=== PATIENT | female | born 1935 | race Caucasian/White ===

== ENCOUNTER 2018-03-18 17:00 | Observation (INO) | payer MEDICARE, OTHER, MEDICAID, SELFPAY ==
[2018-03-18 17:04] VITALS: BP 166/70; PULSE 87; RESP 16; TEMP 36.7; O2SAT 97; BMI 35.2
--- NOTE | 2018-03-18 17:18 | CT_ITS ---
STUDY: CTA NECK WITH CONTRAST REASON FOR EXAM: Female, 82 years old. Left vision loss x24 hours. RADIATION DOSAGE (If Supplied By Facility): CTDIvol = ( 26.82 ) mGy, DLP = ( 1509.67 ) mGycm TECHNIQUE: CT angiography with multi-detector data acquisition was performed from the aortic arch to the skull base following intravenous administration of 75ml ml of Isovue 370 contrast. MIP images were reconstructed from the axial data set. Post-processing of the angiographic images was performed, with multiplanar reformation and 3D reconstruction. Individualized dose optimization techniques were used for this CT. COMPARISON: MRA neck April 06, 2015 FINDINGS: AORTIC ARCH: Normal visualized aortic arch. Normal origins of the brachiocephalic, left common carotid, and left subclavian arteries. Calcified plaque at the origins of the great vessels but no significant stenosis. RIGHT CAROTID ARTERIES: Normal right common carotid artery (CCA). There is mild atherosclerotic plaque formation with minimal narrowing of the right carotid bulb. There is mild atherosclerotic plaque formation of the origin of the right internal carotid artery with less than 50% cross sectional diameter stenosis. Normal visualized cervical portion of the right internal carotid artery. Normal origin of the right external carotid artery (ECA). LEFT CAROTID ARTERIES: Normal left common carotid artery (CCA). There is mild atherosclerotic plaque formation with minimal narrowing of the left carotid bulb. There is mild atherosclerotic plaque formation of the origin of the left internal carotid artery with less than 50% cross sectional diameter stenosis. Normal visualized cervical portion of the left internal carotid artery. Normal origin of the left external carotid artery (ECA). VERTEBRAL ARTERIES: Normal bilateral vertebral arteries. 4 mm nodule right pulmonary apex. CT/CTA Neck W/WO Contrast IMPRESSION: No hemodynamically significant stenosis. 4 to 5 mm spiculated lesion right pulmonary apex. Recommend follow-up CT chest nonemergently. Electronically Signed: Parth Ghotra MD at 19:39 EDT , Service support ,
--- NOTE | 2018-03-18 17:18 | CT_ITS ---
STUDY: CTA OF THE BRAIN REASON FOR EXAM: Female, 82 years old. Vision loss left eye RADIATION DOSAGE (If Supplied By Facility): CTDIvol = ( 26.82 ) mGy, DLP = ( 1509.67 ) mGycm TECHNIQUE: CT angiography was performed with a multi-detector CT scanner. Data acquisition was obtained from the skull base through the vertex following intravenous administration of 75 ml of Isovue-370. MIP images were reconstructed from the axial data set. Post-processing of the angiographic images was performed, with multiplanar reformation and 3D reconstruction. Individualized dose optimization techniques were used for this CT. COMPARISON: CT brain September 19, 2015 and MR brain April 06, 2015 FINDINGS: Intracranial atherosclerosis. Moderate atrophy. Normal bilateral petrous carotid arteries. Normal right cavernous carotid artery with a normal supraclinoid bifurcation. Normal left cavernous carotid artery with a normal supraclinoid bifurcation. Normal right A1 segments of the anterior cerebral artery. Normal left A1 segments of the anterior cerebral artery. Normal intact anterior communicating artery (ACOM). Normal bilateral A2 segments of the anterior cerebral arteries. Normal right M1 and M2 segments of the middle cerebral arteries, with a normal M1 bifurcation. Normal left M1 and M2 segments of the middle cerebral arteries, with a normal M1 bifurcation. There is non-visualization of the right posterior communicating artery (PCOM). There is non-visualization of the left posterior communicating artery (PCOM). Normal bilateral vertebral arteries. Normal basilar artery with a normal basilar bifurcation. The visualized bilateral superior cerebellar (SCA) arteries are normal. Normal bilateral P1, P2 and visualized P3 segments of the posterior cerebral arteries. There is no demonstrated aneurysm of the [place] of [place]. There is no demonstrated abnormality of the visualized brain. CT/CTA Head W/WO Contrast IMPRESSION: Normal [place] without a demonstrated aneurysm or hemodynamically significant stenosis. Electronically Signed: Parth Ghotra MD at 20:55 EDT , Service support ,
--- NOTE | 2018-03-18 17:18 | EKG12_ITS ---
Test Reason : NEURO SX Blood Pressure : / mmHG Vent. Rate : 078 BPM Atrial Rate : 078 BPM P-R Int : 218 ms QRS Dur : 100 ms QT Int : 376 ms P-R-T Axes : 054 -28 036 degrees QTc Int : 428 ms Sinus rhythm with 1st degree A-V block with Premature supraventricular complexes Otherwise normal ECG Confirmed by KENYA FRIAS, MURRAY ([id number]), story editor ELBA TIM ([id number]) on 03/20/2018 12:45:33 PM Referred By: HERNAN Confirmed By:MURRAY ZAMBRANO MD
[2018-03-18 17:51] LABS: Absolute Lymphocyte Count 2.45 X10^3/ul (0.83-4.51); Absolute Neutrophil Count 3.9 X10^3/uL (2.0-7.7); Basophil# 0.02 X10^3/uL; Basophil% 0.3 % (0-1); Eosinophil# 0.38 X10^3/uL; Eosinophils% 5.2 % (0-5); Hematocrit 30.5 % (37-47); Hemoglobin 9.9 g/dl (12.0-15.0); Lymphocyte # 2.45 X10^3/ul (4.0); Lymphocyte % 33.3 % (19-41); Mean Corp Hgb Conc 32.5 g/gl (32-36); Mean Corpuscular Hgb 32.1 pg (27.0-32.0); Mean Platelet Vol. 10.8 fl (6.2-12.0); Monocyte# 0.55 X10^3/uL; Monocyte% 7.5 % (0-10); Neutrophil # 3.94 X10^3/uL (2.7-7.7); Neutrophil % 53.6 % (47-70); POSITIVE COUNT NO; POSITIVE DIFFERENTIAL NO; POSITIVE MORPHOLOGY NO; Platelet Count 202 K/mm3 (150-450); RBC Distribution Width CV 12.7 % (11.6-14.6); RBC Distribution Width SD 46.2 fl (35.1-43.9); Red Blood Count 3.08 M/mm3 (4.2-5.4); White Blood Count 7.4 K/mm3 (4.4-11.0)
[2018-03-18 17:55] LABS: International Normalized Ratio 0.9; Prothrombin Time (Protime)PT. 12.5 SECONDS (11.7-14.9)
[2018-03-18 18:05] LABS: Anion Gap 6 (5-15); BUN 19 mg/dL (7-18); BUN/Creat Ratio 18.1 RATIO (10-20); Calcium,Total 9.1 mg/dL (8.5-10.1); Chloride 104 mmol/L (98-107); Creatinine, Serum 1.05 mg/dL (0.55-1.02); EST Glomerular Filtration Rate 54 mL/min (>60); Est Glom Filt Rate - Afr Amer 65 mL/min (>60); Glucose 141 mg/dL (74-106); Potassium 4.5 mmol/L (3.5-5.1); Sodium Level 138 mmol/L (136-145)
[2018-03-18 19:46] VITALS: BP 140/75; PULSE 80; RESP 16; O2SAT 99
--- NOTE | 2018-03-18 21:19 | ED.VISSUMM ---
- ER Visit Summary Date of Service: 03/18/18 Chief Complaint: Unable to see out of left eye History of Present Illness: The patient is a 82 F who presents with complete visual loss in the left eye. It began about 2:30 PM yesterday. She states she was writing a check. Initially her vision was blurry but within 20 minutes she could not see out of it at all. She states she cannot even detect motion or light. She denies flashing lights or floaters. No history of prior similar symptoms. She denies any pain. No headache nausea vomiting. No other neurological symptoms such as weakness slurred speech or facial droop. The left eye only is affected. Physical Examination: Afebrile vitals notable for blood pressure 166/70 otherwise normal. Patient is unable to detect light or movement from the left eye. There is afferent pupillary defect. Extraocular motion is normal without pain or palsy Anterior chamber is deep and quiet Funduscopic exam is limited by myosis but I do not appreciate any obvious abnormalities such as waite red spot, boxcarring or blood and thunder macula Heart is regular rate and rhythm there is a systolic murmur Lungs are clear Abdomen soft Normal strength and sensation no facial droop Test Results: EKG shows sinus rhythm with a first-degree AV block and PACs. CBC BMP unremarkable. INR 0.9. CTA of the head is normal. CTA of the neck showed no hemodynamically significant stenosis incidental note is made of a 4-5 mm spiculated lesion in the right lung apex. Emergency Department Course and Treatment: Patient's presentation is concerning for central retinal artery occlusion. She presents greater than 24 hours after onset of symptoms. Patient was discussed with ophthalmology special education tutor, Dr. Werner who also recommended obtaining ESR and CRP due to concern for giant cell or temporal arteritis. Given the patient's multiple comorbidities I do believe the patient should undergo further inpatient workup as well including cardiac monitoring and echocardiogram. Patient will be discussed with the hospitalist and admitted. Treatment Plan: [] Disposition: Admit Impression: Acute vision loss left eye, suspect central retinal artery occlusion This note was generated with [employer] dictation software. It may contain incorrect words, spelling, and punctuation that were not noted in review of the chart prior to signing ED Disposition - Plan for ED Patient: Chief Complaint: Neuro S/Sx Referrals: Oneyda Joel MD [Primary Care Provider] -
--- NOTE | 2018-03-18 21:24 | ED.DCSUM_ITS ---
- ER Visit Summary Date of Service: 03/18/18 Chief Complaint: Unable to see out of left eye History of Present Illness: The patient is a 82 F who presents with complete visual loss in the left eye. It began about 2:30 PM yesterday. She states she was writing a check. Initially her vision was blurry but within 20 minutes she could not see out of it at all. She states she cannot even detect motion or light. She denies flashing lights or floaters. No history of prior similar symptoms. She denies any pain. No headache nausea vomiting. No other neurological symptoms such as weakness slurred speech or facial droop. The left eye only is affected. Physical Examination: Afebrile vitals notable for blood pressure 166/70 otherwise normal. Patient is unable to detect light or movement from the left eye. There is afferent pupillary defect. Extraocular motion is normal without pain or palsy Anterior chamber is deep and quiet Funduscopic exam is limited by myosis but I do not appreciate any obvious abnormalities such as waite red spot, boxcarring or blood and thunder macula Heart is regular rate and rhythm there is a systolic murmur Lungs are clear Abdomen soft Normal strength and sensation no facial droop Test Results: EKG shows sinus rhythm with a first-degree AV block and PACs. CBC BMP unremarkable. INR 0.9. CTA of the head is normal. CTA of the neck showed no hemodynamically significant stenosis incidental note is made of a 4-5 mm spiculated lesion in the right lung apex. Emergency Department Course and Treatment: Patient's presentation is concerning for central retinal artery occlusion. She presents greater than 24 hours after onset of symptoms. Patient was discussed with ophthalmology director workers compensation, Dr. Werner who also recommended obtaining ESR and CRP due to concern for giant cell or temporal arteritis. Given the patient's multiple comorbidities I do believe the patient should undergo further inpatient workup as well including cardiac monitoring and echocardiogram. Patient will be discussed with the hospitalist and admitted. Treatment Plan: [] Disposition: Admit Impression: Acute vision loss left eye, suspect central retinal artery occlusion This note was generated with [employer] dictation software. It may contain incorrect words, spelling, and punctuation that were not noted in review of the chart prior to signing ED Disposition - Plan for ED Patient: Chief Complaint: Neuro S/Sx Referrals: Oneyda Joel MD [Primary Care Provider] -
[2018-03-18 21:30] VITALS: BP 162/83; PULSE 67; RESP 14; O2SAT 99
[2018-03-18 21:34] LABS: CRP 5.19 mg/L (0.0-3.0)
[2018-03-18 21:46] VITALS: BP 168/74; PULSE 71; RESP 14; O2SAT 97
[2018-03-18 21:47] LABS: Erythrocyte Sedimentation Rate 19 mm/hr (0-30)
--- NOTE | 2018-03-18 22:01 | HP.PCM_ITS ---
Problem List (1) Blind left eye Status: Acute (2) Anemia Status: Acute (3) Hyperlipidemia Status: Chronic (4) TIA (transient ischemic attack) Status: Suspected (5) Type II diabetes mellitus Status: Chronic History of Present Illness Date of Admission: 03/18/18 Chief Complaint: Left eye blindness The patient is a 82 year old female w/ h/o TIA, DMII, HTN and anemia admitted for left eye blindness. She noted she could not see out of her left eye yesterday in the afternoon. She was writing a check and all of a sudden her vision became blurred and within less than an hour, she became completely blinded in the left eye. She only could see gross movement and shadow. No headache. No light-headedness. No numbness. No red eye. No teary eye. No other associated symptoms. No flashing lights or floaters. She thought it would go away. She went to sleep and thought it was just fatigue. However, it was persistent. Past Medical History Past Medical History (Chronic Problems): Chronic Problems Hyperlipidemia (Chronic) Type II diabetes mellitus (Chronic) Allergies No Known Allergies Allergy (Verified 03/18/18 17:01) Home Medications: Ambulatory Orders Medication Instructions Recorded Atorvastatin Calcium [Lipitor] 20 mg PO QHS 09/19/15 Calcium Carbonate/Vitamin D3 1 each PO DAILY 09/19/15 [Calcium 600 + Vit D Caplet] Lisinopril [Zestril] 20 mg PO DAILY 09/19/15 Metformin HCl [Glucophage] 500 mg PO DAILY 09/19/15 Surgical History: no surgical history Psychiatric History: No pertinent psych hx CERTIFIED REHABILITATION COUNSELOR History: No pertinent CERTIFIED REHABILITATION COUNSELOR history Smoking Status: Former smoker Alcohol: None Drugs: None - *Family History Maternal History Items: No pertinent history Paternal History Items: No pertinent history Review of Systems Constitutional: Denies: Chills, Fever, Weight Change Eyes: Reports: Blurred vision, - - Left eye blindness HEENT: Denies: Head Aches, Sinus Congestion, Sinus Drainage Cardiovascular: Denies: Chest Pain, Palpitations Respiratory: Denies: Cough, Shortness of breath at rest, Sputum production Gastrointestinal: Denies: Abdominal Pain, Nausea, Vomiting Genitourinary: Denies: Dysuria Musculoskeletal: Denies: Joint Pain, Joint Tenderness Skin: Denies: Rash, Wounds Neurological: Denies: Numbness, Tingling, Focal weakness Psychiatric: Denies: Anxiety, Depression, Homicidal Ideations, Suicidal Ideations Hematologic/ Lymphatic: Denies: Easy Bruising, Easy Bleeding VTE Information - Inpt Only VTE Present on Admission: No VTE Mechan Device Prophylaxis: SCD's VTE Pharm Prophylaxis ordered?: Yes Patient Problems: Active and Suspected Problems Blind left eye (Acute) - Physical Exam General: Alert, Oriented x3, Cooperative HEENT: Atraumatic, PERRLA, EOMI, Normocephalic Neck: Supple, No JVD, Negative Carotid Bruits Lungs: Clear to auscultation, Normal air movement Cardiovascular: Regular rate, No murmurs Abdomen: Bowel Sounds Present, Soft, Non Tender Extremities: No edema, Capillary Refill Less than 3 Seconds Skin: No rashes, No breakdown Musculoskeletal: No Tenderness to Palpation of Joints or Extremities Neurological: Cranial nerves II-XII grossly intact Psych/Mental Status: Normal Affect, Appropriate Vital Signs Temp Pulse Resp BP Pulse Ox 98.0 F 71 14 168/74 H 97 03/18/18 17:04 03/18/18 21:46 03/18/18 21:46 03/18/18 21:46 03/18/18 21:46 Oxygen Delivery Method Room Air Weight: 93.2 kg Body Mass Index (BMI) 35.2 Finger Stick Blood Glucose 121 Laboratory Tests Past 24 Hrs 03/18/18 03/18/18 03/18/18 17:35 17:35 17:35 WBC 7.4 RBC 3.08 L Hgb 9.9 L Hct 30.5 L MCV 99.0 MCH 32.1 H MCHC 32.5 RDW 12.7 RDW Differential 46.2 H Plt Count 202 MPV 10.8 Immature Gran % (Auto) 0.100 Neut % (Auto) 53.6 Lymph % (Auto) 33.3 Blair % (Auto) 7.5 Eos % (Auto) 5.2 H Baso % (Auto) 0.3 Absolute Neuts (auto) 3.9 Absolute Lymphs (auto) 2.45 Total Counted Not Reportable ESR PT 12.5 INR 0.9 Sodium 138 Potassium 4.5 Chloride 104 Carbon Dioxide 28.0 Anion Gap 6 BUN 19 H Creatinine 1.05 H Estim Creat Clear Calc 36.90 Est GFR (MDRD) Af Amer 65 Est GFR (MDRD) Non-Af 54 L BUN/Creatinine Ratio 18.1 Glucose 141 H Calcium 9.1 C-React Prot Ext Range 03/18/18 03/18/18 17:35 17:35 WBC RBC Hgb Hct MCV MCH MCHC RDW RDW Differential Plt Count MPV Immature Gran % (Auto) Neut % (Auto) Lymph % (Auto) Blair % (Auto) Eos % (Auto) Baso % (Auto) Absolute Neuts (auto) Absolute Lymphs (auto) Total Counted ESR 19 PT INR Sodium Potassium Chloride Carbon Dioxide Anion Gap BUN Creatinine Estim Creat Clear Calc Est GFR (MDRD) Af Amer Est GFR (MDRD) Non-Af BUN/Creatinine Ratio Glucose Calcium C-React Prot Ext Range 5.19 H Assessment/Plan All Active Problems Blind left eye (Acute) Anemia (Acute) Hypertensive urgency (Acute) Dizziness (Acute) 82 year old female w/ h/o TIA, DMII, HTN and anemia admitted for left eye blindness. 1) Left eye blindness: Will rule-out central causes of blindness. CTA brain and neck negative. Will get ECHO and MRI brain in AM. Will also get ESR / CRP. Will not start high dose steroid at this time given low suspicion for giant cell or temporal arteritis. Consulted ophthalmology. 2) Right pulmonary nodule: CT disclosed 4 mm nodule right pulmonary apex. Outpt followup. Pt to f/u with her PCP for repeat CT scan in 6 months. Monitor. 3) HTN: SBP 150s. Resume outpt meds. 4) DMII: Hold metformin given contrast during CTA. Sliding scale. 5) Prophylaxis: SCD / heparin.
--- NOTE | 2018-03-18 22:03 | NURSING ---
Called ED bunk house worker, Kelly at this time to confirm Pt is okay to come to PCU.
[2018-03-18 22:34] VITALS: BMI 33.8
[2018-03-18 22:38] VITALS: BP 153/65; PULSE 73; PULSE 77; RESP 16; TEMP 36.9; O2SAT 100
[2018-03-18 22:45] VITALS: BMI 33.8
--- NOTE | 2018-03-18 22:49 | ECHOD_ITS ---
Reason For Study: TIA/CVA Procedure This was a 2D Doppler, Color Flow transthoracic echocardiogram. The study was technically difficult. Exam performed portable in patient room. Left Ventricle Normal LV size. Moderate concentric left ventricular hypertrophy. Left ventricular systolic function is normal. The estimated ejection fraction is 65 %. Stage 1 diastolic dysfunction. No regional wall motion abnormalities noted. Right Ventricle Normal RV size. Normal systolic function. Atria The left atrium is moderately enlarged. Normal right atrium. Bubble contrast study negative for right to left interatrial shunt. Mitral Valve There is moderate mitral annular calcification. Mild (1+) eccentric mitral valve insufficiency. Tricuspid Valve Normal tricuspid valve. Mild (1+) tricuspid valve insufficiency. Pulmonary artery systolic pressure is 44 mmHg. Aortic Valve Trisinus/trileaflet aortic valve. Moderate focal aortic valve calcification. Peak aortic valve gradient 74 mmHg. Mean aortic valve gradient 39 mmHg. Severe aortic stenosis. Calculated aortic valve area (continuity equation) is 0.93 cm2. Pulmonic Valve The pulmonic valve is not well visualized. Great Vessels Calcified aortic root. The pulmonary artery is normal size. Normal inferior vena cava. Pericardium/Pleural No pericardial effusion. Medication Performed a rapid injection of agitated mix of 9 cc saline and 1cc air to assess for atrial septal defect. MMode/2D Measurements & Calculations LVIDd: 4.0 cm IVSd: 2.0 cm LVOT diam: 2.0 cm LVIDs: 2.4 cm LVPWd: 1.7 cm LVOT area: 3.2 cm2 FS: 41.0 % Ao root diam: 3.6 cm LAV(MOD-sp4): 86.8 ml LVAd ap4: 26.9 cm2 LA dimension: 3.3 cm EDV(MOD-sp4): 81.9 ml EDV(sp4-el): 83.0 ml LVAs ap4: 13.1 cm2 ESV(MOD-sp4): 26.5 ml ESV(sp4-el): 24.9 ml EF(MOD-sp4): 67.6 % EF(sp4-el): 70.0 % SV(MOD-sp4): 55.3 ml SV(sp4-el): 58.1 ml LA A4 area: 25.4 cm2 RA A4 area: 16.7 cm2 Time Measurements MV dec time: 0.24 sec Doppler Measurements & Calculations MV E max ephraim: 116.2 cm/sec Lat Peak E' Ephraim: 9.7 cm/sec Med Peak E' Ephraim: 5.5 cm/sec MV A max ephraim: 171.4 cm/sec E/E' lat: 12.0 E/E' med: 21.2 MV E/A: 0.68 MV V2 max: 227.3 cm/sec MV P1/2t max ephraim: 136.8 cm/sec Ao V2 max: 428.7 cm/sec MV max P.7 mmHg MV P1/2t: 43.8 msec Ao max P.9 mmHg MV V2 mean: 120.6 cm/sec MV dec slope: 914.0 cm/sec2 Ao V2 mean: 286.5 cm/sec MV mean P.2 mmHg MVA(P1/2t): 5.0 cm2 Ao mean P.8 mmHg MV V2 VTI: 44.4 cm Ao V2 VTI: 95.3 cm MVA(VTI): 2.2 cm2 LAUREN(I,D): 1.0 cm2 LAUREN(V,D): 0.93 cm2 LV V1 max: 122.9 cm/sec SV(LVOT): 99.4 ml TR max ephraim: 317.8 cm/sec LV V1 max P.0 mmHg TR max P.4 mmHg LV V1 mean P.1 mmHg LV V1 mean: 82.8 cm/sec LV V1 VTI: 30.8 cm Interpretation Summary Normal LV size. Moderate concentric left ventricular hypertrophy. Left ventricular systolic function is normal. The estimated ejection fraction is 65 %. Stage 1 diastolic dysfunction. Mean aortic valve gradient 39 mmHg. Severe aortic stenosis. Ordering Physician: Delmer Patton Referring Physician: NORA MELGOZA Performed By: Barrie Morrell RCS
[2018-03-18 23:09] VITALS: PULSE 72
[2018-03-18] MEDS: Atorvastatin Calcium 20 MG Tablet PO (23:18)
[2018-03-18] MEDS: Heparin Injection (Vial) 5,000 UNIT/ML VIAL 5000 UNIT SC (23:24)
[2018-03-18] MEDS: 0.9% Normal Saline 1,000 ML 100 ML IV (23:30)
[2018-03-18 23:39] LABS: Thyroid Stim Hormone (TSH) 1.44 uIU/mL (0.358-3.74)
[2018-03-18 23:41] LABS: Bedside Glucose 107 mg/dL (70-110)
[2018-03-19] VITALS (7 sets, daily range): BP systolic 123–151; BP diastolic 54–82; PULSE 68–77; RESP 16–18; TEMP 36.7–36.8; O2SAT 95–97
[2018-03-19 06:10] LABS: ALB/GLOB Ratio 0.8 RATIO (0.9-2.4); AST(SGOT) 21 U/L (15-37); Alanine Aminotransfer ALT/SGPT 16 U/L (13-56); Albumin, Serum 2.6 g/dL (3.2-5.0); Alkaline Phosphatase 35 U/L (45-117); Anion Gap 8 (5-15); BUN 15 mg/dL (7-18); BUN/Creat Ratio 19.5 RATIO (10-20); Calcium,Total 8.8 mg/dL (8.5-10.1); Chloride 111 mmol/L (98-107); Cholesterol 125 mg/dL (200); Creatinine, Serum 0.77 mg/dL (0.55-1.02); EST Glomerular Filtration Rate 77 mL/min (>60); Est Glom Filt Rate - Afr Amer 93 mL/min (>60); Estimated Creatinine Clearance 38.75 ml/min; Globulin 3.1 g/dL (2.2-4.2); Glucose 87 mg/dL (74-106); High Density Lipoprotein 64 mg/dL; Potassium 4.4 mmol/L (3.5-5.1); Protein, Total 5.7 g/dL (6.4-8.2); Sodium Level 142 mmol/L (136-145); Triglycerides 76 mg/dL; Very Low Density Lipoprotein 15 mg/dL (5-40)
[2018-03-19 06:28] LABS: Absolute Lymphocyte Count 2.55 X10^3/ul (0.83-4.51); Absolute Neutrophil Count 2.3 X10^3/uL (2.0-7.7); Basophil# 0.03 X10^3/uL; Basophil% 0.5 % (0-1); Eosinophil# 0.49 X10^3/uL; Eosinophils% 8.3 % (0-5); Hematocrit 29.8 % (37-47); Hemoglobin 9.9 g/dl (12.0-15.0); Lymphocyte # 2.55 X10^3/ul (4.0); Lymphocyte % 43.4 % (19-41); Mean Corp Hgb Conc 33.2 g/gl (32-36); Mean Corpuscular Hgb 33.1 pg (27.0-32.0); Mean Corpuscular Volume 99.7 fL (81-99); Mean Platelet Vol. 9.8 fl (6.2-12.0); Monocyte# 0.49 X10^3/uL; Monocyte% 8.3 % (0-10); Neutrophil # 2.31 X10^3/uL (2.7-7.7); Neutrophil % 39.5 % (47-70); Platelet Count 234 K/mm3 (150-450); RBC Distribution Width CV 12.3 % (11.6-14.6); RBC Distribution Width SD 43.5 fl (35.1-43.9); Red Blood Count 2.99 M/mm3 (4.2-5.4); White Blood Count 5.9 K/mm3 (4.4-11.0)
[2018-03-19] MEDS: Heparin Injection (Vial) 5,000 UNIT/ML VIAL 5000 UNIT SC (06:32)
[2018-03-19 06:46] LABS: POSITIVE COUNT NO; POSITIVE DIFFERENTIAL NO; POSITIVE MORPHOLOGY NO
[2018-03-19 07:06] LABS: Bedside Glucose 92 mg/dL (70-110)
--- NOTE | 2018-03-19 08:00 | MRI_ITS ---
STUDY: MRI BRAIN WITHOUT CONTRAST REASON FOR EXAM: Female, 82 years old. CVA. Left-sided blindness. TECHNIQUE: Standardized multiplanar fat and water weighted pulse sequences were obtained. COMPARISON: 04/06/2015. CT head 09/19/2015. CTA head and neck 03/18/2018. FINDINGS: No restricted diffusion to suspect acute or subacute ischemic infarct. Normal size of the ventricles and extra-axial spaces for the patient's age. Few subcortical white matter and periventricular white matter T2 FLAIR hyperintensity foci are chronic white matter ischemic changes. Normal bilateral basal ganglia. Normal thalami. There is no extra-axial fluid accumulation. Normal flow voids within the major intracranial circulation suggesting patency by spin echo criteria. Normal sella turcica, pituitary gland, infundibular stalk, optic chiasm and hypothalamus. Normal tectal plate and pineal gland. Normal midbrain, bernardo and medulla. Normal cerebellum. Normal basal cisterns. Normal bilateral temporal bones. Normal bilateral internal auditory canals. No demonstrated orbital abnormality, within the constraints of a routine brain study. Normal visualized paranasal sinuses. Normal calvarium and skull base. Normal visualized soft tissue structures. Pronounced C3-C4 disc space height narrowing. MRI/Brain without Contrast IMPRESSION: 1. No MRI evidence of acute or subacute ischemic infarct. 2. Few chronic white matter ischemic changes in both cerebral hemispheres. 3. Pronounced C3-C4 degenerative disc space height narrowing. Electronically Signed: Anthony Mendoaz MD at 11:18 EDT , Service support ,
[2018-03-19] MEDS: Aspirin 81 MG TAB.CHEW PO (10:07)
[2018-03-19] MEDS: Calcium Carb/Vitamin D 1 TABLET Tablet PO (10:07)
[2018-03-19] MEDS: Lisinopril 20 MG Tablet PO (10:07)
[2018-03-19] MEDS: Acetaminophen 325 MG Tablet 650 MG PO (11:24)
[2018-03-19 11:40] LABS: Bedside Glucose 177 mg/dL (70-110)
--- NOTE | 2018-03-19 11:48 | PCM.DC ---
- Discharge Diagnoses Current Active Problems: Current Active and Chronic Problems Blind left eye (Acute) You will use the following diet at home:: Calorie/Carbohydrate Controlled (specify 1200, 1400, etc) - 1800 hanna / day, Cardiac Your food should be the consistency of: Regular Your liquids should be the consistency of: Regular/Thin Discharge Activity: Return to Normal Activity, - - may not drive until cleared by opthalmology Allergies/Adverse Reactions: Allergies No Known Allergies Allergy (Verified 03/18/18 17:01) Medications to take at Discharge Atorvastatin Calcium [Lipitor] 20 mg PO QHS 09/19/15 Calcium Carbonate/Vitamin D3 [Calcium 600-Vit D3 400 Caplet] 1 each PO DAILY 09/19/15 Lisinopril [Zestril] 20 mg PO DAILY 09/19/15 Metformin HCl [Glucophage] 500 mg PO DAILY 09/19/15 Primary Care Physician: Oneyda Joel MD [Primary Care Provider] - Please follow up with your Primary Care Physician in: 2 weeks Test Results: Test results from this visit will be discussed in further detail at your follow-up appointment, if applicable. Please Follow Up With: Opthalmology - Call today. When: As soon as possible. Proposed Discharge Date: 03/19/18
--- NOTE | 2018-03-19 16:56 | PCM.DC.SUM ---
Discharge Date and Diagnosis Date of Admission: 03/18/18 Date of Discharge: 03/19/18 - Secondary Discharge Diagnosis Chronic Problems Hyperlipidemia (Chronic) Type II diabetes mellitus (Chronic) Hospital Course and Treatment Imaging Results: MRI/Brain without Contrast IMPRESSION: 1. No MRI evidence of acute or subacute ischemic infarct. 2. Few chronic white matter ischemic changes in both cerebral hemispheres. 3. Pronounced C3-C4 degenerative disc space height narrowing. CT/CTA Head W/WO Contrast IMPRESSION: Normal [place] without a demonstrated aneurysm or hemodynamically significant stenosis. CT/CTA Neck W/WO Contrast IMPRESSION: No hemodynamically significant stenosis. 4 to 5 mm spiculated lesion right pulmonary apex. Recommend follow-up CT chest nonemergently. Echo: LV V1 max: 122.9 cm/sec SV(LVOT): 99.4 ml TR max karin: 317.8 cm/sec LV V1 max P.0 mmHg TR max P.4 mmHg LV V1 mean P.1 mmHg LV V1 mean: 82.8 cm/sec LV V1 VTI: 30.8 cm Interpretation Summary Normal LV size. Moderate concentric left ventricular hypertrophy. Left ventricular systolic function is normal. The estimated ejection fraction is 65 %. Stage 1 diastolic dysfunction. Mean aortic valve gradient 39 mmHg. Severe aortic stenosis. Consultations: Ophthalmology Operations: None Procedures: 2-D Echocardiogram Summary of Care Provided: Physical exam on day of discharge: General: Resting comfortably NAD Psych: A/Ox3 normal affect HEENT: Her left eye has a normal red reflex, tracks normally with the right eye, however there is some slowness to constrict compared to the right eye and it appears mildly dilated compared to the right eye. No nystagmus appreciated. She is able to see changes in the light and shapes moving. Neck: Supple NT CV: RRR no m/t/r/g/h Resp: CTA Abd: [id number] Soft NT no guarding or rigidity Ext: DP2+= no edema Skin: W/D normal turgor Lymph/Heme: No active bleeding or adenopathy Neuro: CN2-12 intact Hospital course: The patient is a 82 year old F with a history of diabetes, hypertension, hyperlipidemia who presents to the emergency room after experiencing a sudden episode of loss of vision in her left eye. She states that she suddenly could not see anything except blurriness and some light changes. She had no pain. She had no headache, double vision, slurring of speech, facial droop, focal weakness, difficulty ambulating. She was brought to the ER and underwent a CT of the brain which is negative. She was admitted for stroke workup. MRI and CT of the head and neck were obtained and these were normal. Echocardiogram was obtained with results as above. She was advised to follow-up with ophthalmology as an outpatient. An appointment was arranged for her this afternoon. She worked with PT OT and did have some weakness and outpatient physical therapy was prescribed at this time. She was discharged home in stable condition. Please keep your appointment with ophthalmology today in follow-up with your PCP in 1-2 weeks. This patient was seen by Som Olmstead PA-C under the supervision of Doctor Dee Dee. [] Discharge Diet: Low fat/ Low Cholesterol, 1800 Calorie Control Diet, 2000 mg Sodium Diet Discharge Activity: Return to Normal Activity, - - may not drive until cleared by opthalmology Home Medications: Medications to take at Discharge Atorvastatin Calcium [Lipitor] 20 mg PO QHS 09/19/15 Calcium Carbonate/Vitamin D3 [Calcium 600-Vit D3 400 Caplet] 1 each PO DAILY 09/19/15 Lisinopril [Zestril] 20 mg PO DAILY 09/19/15 Metformin HCl [Glucophage] 500 mg PO DAILY 09/19/15 Primary Care Physician: Oneyda Joel MD [Primary Care Provider] - Please follow up with your Primary Care Physician in: 2 weeks Please Follow Up With: Kushal Gupta MD When: As soon as possible. Disposition: Home Minutes spent on discharge:: 40 Patient Condition:: Stable Medical Necessity - Tobacco Use Smoking Status: Former smoker Meaningful Use Info Meaningful Use Diagnoses (Choose all that apply): None applicable
--- NOTE | 2018-03-19 17:05 | DS.PCM_ITS ---
Discharge Date and Diagnosis Date of Admission: 03/18/18 Date of Discharge: 03/19/18 - Secondary Discharge Diagnosis Chronic Problems Hyperlipidemia (Chronic) Type II diabetes mellitus (Chronic) Hospital Course and Treatment Imaging Results: MRI/Brain without Contrast IMPRESSION: 1. No MRI evidence of acute or subacute ischemic infarct. 2. Few chronic white matter ischemic changes in both cerebral hemispheres. 3. Pronounced C3-C4 degenerative disc space height narrowing. CT/CTA Head W/WO Contrast IMPRESSION: Normal [place] without a demonstrated aneurysm or hemodynamically significant stenosis. CT/CTA Neck W/WO Contrast IMPRESSION: No hemodynamically significant stenosis. 4 to 5 mm spiculated lesion right pulmonary apex. Recommend follow-up CT chest nonemergently. Echo: LV V1 max: 122.9 cm/sec SV(LVOT): 99.4 ml TR max karin: 317.8 cm/sec LV V1 max P.0 mmHg TR max P.4 mmHg LV V1 mean P.1 mmHg LV V1 mean: 82.8 cm/sec LV V1 VTI: 30.8 cm Interpretation Summary Normal LV size. Moderate concentric left ventricular hypertrophy. Left ventricular systolic function is normal. The estimated ejection fraction is 65 %. Stage 1 diastolic dysfunction. Mean aortic valve gradient 39 mmHg. Severe aortic stenosis. Consultations: Ophthalmology Operations: None Procedures: 2-D Echocardiogram Summary of Care Provided: Physical exam on day of discharge: General: Resting comfortably NAD Psych: A/Ox3 normal affect HEENT: Her left eye has a normal red reflex, tracks normally with the right eye , however there is some slowness to constrict compared to the right eye and it appears mildly dilated compared to the right eye. No nystagmus appreciated. She is able to see changes in the light and shapes moving. Neck: Supple NT CV: RRR no m/t/r/g/h Resp: CTA Abd: [id number] Soft NT no guarding or rigidity Ext: DP2+= no edema Skin: W/D normal turgor Lymph/Heme: No active bleeding or adenopathy Neuro: CN2-12 intact Hospital course: The patient is a 82 year old F with a history of diabetes, hypertension, hyperlipidemia who presents to the emergency room after experiencing a sudden episode of loss of vision in her left eye. She states that she suddenly could not see anything except blurriness and some light changes. She had no pain. She had no headache, double vision, slurring of speech, facial droop, focal weakness, difficulty ambulating. She was brought to the ER and underwent a CT of the brain which is negative. She was admitted for stroke workup. MRI and CT of the head and neck were obtained and these were normal. Echocardiogram was obtained with results as above. She was advised to follow-up with ophthalmology as an outpatient. An appointment was arranged for her this afternoon. She worked with PT OT and did have some weakness and outpatient physical therapy was prescribed at this time. She was discharged home in stable condition. Please keep your appointment with ophthalmology today in follow-up with your PCP in 1-2 weeks. This patient was seen by Som Olmstead PA-C under the supervision of Doctor Dee Dee. [] Discharge Diet: Low fat/ Low Cholesterol, 1800 Calorie Control Diet, 2000 mg Sodium Diet Discharge Activity: Return to Normal Activity, - - may not drive until cleared by opthalmology Home Medications: Medications to take at Discharge Atorvastatin Calcium [Lipitor] 20 mg PO QHS 09/19/15 Calcium Carbonate/Vitamin D3 [Calcium 600-Vit D3 400 Caplet] 1 each PO DAILY Lisinopril [Zestril] 20 mg PO DAILY 09/19/15 Metformin HCl [Glucophage] 500 mg PO DAILY 09/19/15 Primary Care Physician: Oneyda Joel MD [Primary Care Provider] - Please follow up with your Primary Care Physician in: 2 weeks Please Follow Up With: Kushal Gupta MD When: As soon as possible. Disposition: Home Minutes spent on discharge:: 40 Patient Condition:: Stable Medical Necessity - Tobacco Use Smoking Status: Former smoker Meaningful Use Info Meaningful Use Diagnoses (Choose all that apply): None applicable
== END 2018-03-19 11:49 | disposition home or self-care (01) ==
LOC: ED 17:51 → PCU 22:04
PROVIDERS: Admitting Provider Internal Medicine; Emergency Provider Emergency Medicine; Family Provider Internal Medicine; PCP Internal Medicine; Visit Provider Internal Medicine
DX: H54.40 Blindness, one eye, unspecified eye (principal); D64.9 Anemia, unspecified; E11.9 Type 2 diabetes mellitus without complications; I10 Essential (primary) hypertension; E78.5 Hyperlipidemia, unspecified; E66.9 Obesity, unspecified; Z86.73 Personal history of transient ischemic attack (TIA), and cerebral infarction without residual deficits; Z68.33 Body mass index [BMI] 33.0-33.9, adult; Z71.3 Dietary counseling and surveillance; I35.0 Nonrheumatic aortic (valve) stenosis; I08.1 Rheumatic disorders of both mitral and tricuspid valves; Z87.891 Personal history of nicotine dependence; Z79.899 Other long term (current) drug therapy; Z79.84 Long term (current) use of oral hypoglycemic drugs; R91.1 Solitary pulmonary nodule
CPT/HCPCS: 36415; 70496; 70498; 70551; 80048; 80053; 80061; 82962; 84443; 84484; 85025; 85610; 85652; 86140; 92523; 93005; 93306; 96360; 96361; 96372; 97162; 97166; 99218; 99285; J7030; Q9967; A4216; G0378

== ENCOUNTER → 2018-04-06 12:42 | Outpatient (CLI) | payer MEDICARE, OTHER, MEDICAID, SELFPAY ==
--- NOTE | 2018-04-06 13:01 | CDU_ITS ---
Reason For Study: central retinal art occlusion, stenosis Rt. Velocities/BP Lt. Velocities/BP Prox CCA 87.9/14.7 cm/sec. Prox CCA 101.0/19.6 cm/sec. Mid CCA 86.2/14.1 cm/sec. Mid CCA 92.7/16.5 cm/sec. Dist CCA 64.5/14.7 cm/sec. Dist CCA 90.4/18.9 cm/sec. Prox ICA 101.0/20.4 cm/sec. Prox ICA 111.0/26.4 cm/sec. Mid ICA 94.3/25.9 cm/sec. Mid ICA 149.0/35.4 cm/sec. Dist ICA 87.9/22.9 cm/sec. Dist ICA 121.0/30.6 cm/sec. Rt. ICA/CCA = 101.0/86.2=1.2. Lt. ICA/CCA = 149.0/92.7=1.6. Prox ECA 120.0/8.64 cm/sec. Prox ECA 86.2/7.62 cm/sec. Rt. Vert. 51.5/ cm/sec. Lt. Vert. 68.3/11.5 cm/sec. Right Extracranial There is homogeneous, smooth atherosclerotic plaque noted in the right common carotid artery. There is heterogeneous, irregular atherosclerotic plaque noted in the right internal carotid artery. There is heterogeneous, irregular atherosclerotic plaque noted in the right external carotid artery. Antegrade flow is noted in the right vertebral artery. There is heterogeneous, irregular atherosclerotic plaque noted in the right bulb. Left Extracranial There is homogeneous, smooth atherosclerotic plaque noted in the left common carotid artery. There is heterogeneous, irregular atherosclerotic plaque noted in the left internal carotid artery. There is heterogeneous, irregular atherosclerotic plaque noted in the left external carotid artery. Antegrade flow is noted in the left vertebral artery. There is heterogeneous, irregular atherosclerotic plaque noted in the left bulb. Interpretation Summary Mild (<50%) stenosis right extracranial internal carotid. However, acoustic shadowing is noted in the proximal right internal carotid artery which obscures visualization of the arterial lumen. Therefore, the degree of stenosis may exceed that estimated by velocity criteria alone. Clinical correlation is advised. The degree of stenosis in the left internal carotid artery appears to approach 50%. Flow within the vertebral arteries is antegrade bilaterally. Heterogeneous, irregular atherosclerotic plaque is noted in the carotid bulbs bilaterally, which does not appear to be hemodynamically significant. Ordering Physician: Kushal Gupta Referring Physician: clarissa Joel Performed By: Jeaneth Haque, NIKOS, RVT
== END ==
PROVIDERS: Family Provider Internal Medicine; PCP Internal Medicine; Visit Provider Ophthalmology
DX: H34.12 Central retinal artery occlusion, left eye (principal); I65.29 Occlusion and stenosis of unspecified carotid artery
CPT/HCPCS: 93880

== ENCOUNTER → 2019-03-28 12:45 | Outpatient (CLI) | payer MEDICARE, MEDICAID, SELFPAY ==
[2019-03-13 13:42] VITALS: BMI 34.3
--- NOTE | 2019-03-28 12:48 | ECHOD_ITS ---
Reason For Study: MURMUR Procedure This was a 2D Doppler, Color Flow transthoracic echocardiogram. Exam performed in department. Left Ventricle Normal LV size. Left ventricular systolic function is normal. The estimated ejection fraction is 65 %. No regional wall motion abnormalities noted. Right Ventricle Normal RV size. Normal systolic function. Atria The left atrium is moderately enlarged. Normal right atrium. Mitral Valve There is moderate mitral annular calcification. Mild (1+) eccentric mitral valve insufficiency. Tricuspid Valve Normal tricuspid valve. Mild (1+) tricuspid valve insufficiency. Pulmonary artery systolic pressure is 28 mmHg. Aortic Valve Trisinus/trileaflet aortic valve. Moderate focal aortic valve calcification. Severe aortic stenosis. Peak aortic valve gradient 81 mmHg. Mean aortic valve gradient 49 mmHg. Calculated aortic valve area (continuity equation) is 0.9 cm2. MMode/2D Measurements & Calculations LVIDd: 5.1 cm IVSd: 1.2 cm LVOT diam: 2.2 cm LVIDs: 3.6 cm LVPWd: 1.1 cm RVDd: 3.2 cm FS: 29.8 % LVOT area: 3.8 cm2 Ao root diam: 3.1 cm LAV(MOD-bp): 129.4 ml LA A4 area: 29.1 cm2 LAV(MOD-bp) Indexed: 66.2 ml/m2 LAV(MOD-sp2): 129.5 ml LAV(MOD-sp4): 111.4 ml LA dimension(2D): 4.9 cm RA A4 area: 15.8 cm2 Time Measurements MV dec time: 0.19 sec Doppler Measurements & Calculations MV E max ephraim: 107.6 cm/sec Lat Peak E' Ephraim: 5.9 cm/sec Med Peak E' [place]: 4.4 cm/sec MV A max ephraim: 164.4 cm/sec E/E' lat: 18.3 E/E' med: 24.5 MV E/A: 0.65 MV V2 max: 173.2 cm/sec MV P1/2t max ephraim: 104.8 cm/sec Ao V2 max: 455.1 cm/sec MV max P.0 mmHg MV P1/2t: 92.4 msec Ao max P.9 mmHg MV V2 mean: 78.7 cm/sec Ao V2 mean: 336.1 cm/sec MV mean P.0 mmHg MV dec slope: 332.3 cm/sec2 Ao mean P.9 mmHg MV V2 VTI: 44.4 cm MVA(P1/2t): 2.4 cm2 Ao V2 VTI: 113.8 cm MVA(VTI): 2.5 cm2 LAUREN(I,D): 0.96 cm2 LAUREN(V,D): 0.89 cm2 LV V1 max: 106.0 cm/sec SV(LVOT): 109.8 ml PA V2 max: 88.8 cm/sec LV V1 max P.5 mmHg LV V1 mean P.6 mmHg LV V1 mean: 77.8 cm/sec LV V1 VTI: 28.8 cm TR max ephraim: 246.9 cm/sec TR max P.4 mmHg Interpretation Summary Normal LV size. Left ventricular systolic function is normal. The estimated ejection fraction is 65 %. The left atrium is moderately enlarged. Mean aortic valve gradient 49 mmHg. Calculated aortic valve area (continuity equation) is 0.9 cm2. Moderate focal aortic valve calcification. Compared to the previous the is worse. Ordering Physician: Cameron Benson Referring Physician: Oneyda Joel Performed By: Jeaneth Haque, SHAHNAZCS, RVT
== END ==
PROVIDERS: Family Provider Internal Medicine; PCP Internal Medicine; Referring Provider Internal Medicine Cardiovascular Disease; Visit Provider Internal Medicine Cardiovascular Disease
DX: I35.0 Nonrheumatic aortic (valve) stenosis (principal)
CPT/HCPCS: 93306

== ENCOUNTER 2019-04-25 05:13 | Day surgery (SDC) | payer MEDICARE, MEDICAID, SELFPAY ==
[2019-04-10 13:32] VITALS: BMI 34.3
--- NOTE | 2019-04-13 11:18 | HP_ITS ---
Intake Vital Signs 04/10/19 Body Mass Index (BMI) 34.3 04/10/19 Height 5 ft 4 in 04/10/19 Weight: 200 lb 04/10/19 Body Mass Index (BMI) 34.3 04/10/19 Blood Pressure 108/67 04/10/19 Blood Pressure Location Lt brachial 04/10/19 Respiratory Rate 16 04/10/19 Pulse Rate 67 04/10/19 Pulse Source Monitor 04/10/19 Temperature 97.9 F 04/10/19 Pulse Ox 100 04/10/19 Oxygen Delivery Method room air Intake Visit Reasons: C-Scope/Anemia Chief Complaint: Vision Loss in L eye Dcs Engineer Required: No Is patient in pain?: No Allergies No Known Allergies Allergy (Verified 04/10/19 13:28) Medications Atorvastatin Calcium [Lipitor] 20 mg PO QHS 09/19/15 [History Confirmed 04/10/19] metFORMIN HCl [Glucophage] 500 mg PO DAILY 09/19/15 [History Confirmed 04/10/19] ferrous sulfate 325 mg (65 mg iron) tablet 325 mg PO BID #180 tab 03/12/19 [History Confirmed 04/10/19] lisinopril 20 mg tablet 10 mg PO DAILY tab 03/13/19 [History Confirmed 04/10/19] calcium carbonate 600 mg (1,500 mg)-vitamin D3 400 unit tablet 2 tab PO DAILY tab 04/10/19 [History Confirmed 04/10/19] multivitamin tablet 1 tab PO DAILY 04/10/19 [History Confirmed 04/10/19] [facility] Medical History Arthritis (Acute) Anemia (Acute) Heart murmur (Acute) Fatigue (Acute) Transient ischemic attack (Chronic) Secondary pulmonary arterial hypertension (Chronic) Obesity (Chronic) Osteoarthritis (Chronic) GERD (gastroesophageal reflux disease) (Chronic) Chronic iron deficiency anemia (Chronic) Non-rheumatic aortic stenosis (Chronic) Essential (primary) hypertension (Chronic) Blind left eye (Chronic) Hyperlipidemia (Chronic) Type II diabetes mellitus (Chronic) Surgical History No history of previous surgery (Acute) Family History Brother Heart disease CAD (coronary artery disease) CABG Sister Breast cancer Diabetes Heart disease Mother Breast cancer Cancer Social History (Updated 04/13/19 @ 11:19 by Ki Feliciano MD) Smoking Status: Former smoker second hand exposure: No alcohol intake: never substance use type: does not use caffeine: Yes what type of physical activity do you participate in: none frequency: does not exercise seatbelt use: always HPI HPI HPI: TALHA JACOBSON, is a 83 F who presents to the office today for HPI HPI Surgical H&P: Yes HPI: TALHA JACOBSON, is a 83 F who presents to the office today for Evaluation of anemia. Patient has been seen by Kathy Hewitt at the [facility] for undetermined cause of anemia. She has had a hemoglobin as low as 8.6. Most recent one shows her to be in the 9 range now. She has a history of aortic stenosis. And her last visit with Dr. Otoole back in November he thought that she was stable and showed no evidence of A. fib. ROS General General: Yes fatigue; no weight change, appetite, colon cancer, breast cancer or weakness HEENT HEENT: No difficulty swallowing, eye injury, eye surgery, swollen glands or hoarseness Endo Endocrine: Yes diabetes mellitus; no thyroid disease, thyroid cancer, Hair loss, heat intolerance or cold intolerance Skin Skin: No rash or changing moles Musc Musculoskeletal: Yes back problems and arthritis; no rheumatoid arthritis, gout or joint pain Cardio Cardiovascular: Yes murmur and high blood pressure; no pacemaker, heart disease, atrial fibrillation, heart attack, heart stent, palpitations, shortness of breat with exertion or chest pain Psych Psychiatric: No depression, anxiety or hearing voices Resp Respiratory: No shortness of breath, No sleep apnea, No cough, No COPD, No asthma, No emphysema, No wheezing Gastro Gastrointestinal: No abdominal pain, No nausea or vomiting, No diarrhea, No constipation, No blood in stool, No acid reflux, No hemorrhoids, No ulcers, No gallbladder problem, No black,tarry stools [place] Hematologic: No blood thinners, No blood disorders, Yes bleeding, Yes anemia, No blood clots Neuro Neurologic: No system reviewed and no additional complaints, except as docu, No as per HPI, No abnormal walking, No abnormal hearing, No abnormal movements, No abnormal speech, No behavioral changes, No burning sensations, No confusion, No seizure-like activity, No unsteadiness, No dizziness, No localized weakness, No frequent falls, No headache(s), No lack of coordination, No loss of vision, No memory loss, No numbness, No other visual disturbances, No radiating pain, No restless legs, No sensory deficit, No fainting, No tingling, No tremor(s), No weakness, No other Exam Const General: no acute distress, well developed, well hydrated Orientation: oriented to person, oriented to place, oriented to time [facility] Head: normocephalic, atraumatic Ears: external ears normal Mouth: moist mucous membranes Eyes Sclera: sclerae normal Pupils: normal by confrontation Neck Neck: no lymphadenopathy noted Neck mass: No Thyroid: thyroid normal, symmetrical Chest Chest palpation & inspection: normal inspection of the chest Resp Effort & Inspection: normal respiratory effort Auscultation: clear to auscultation bilaterally Percussion: percussion normal Cardio Rate: regular rate Rhythm: regular rhythm Heart Sounds: murmur GI Palpation: soft, no hepatosplenomegaly, no masses, nontender Rectal Exam: other Other: Rectal exam deferred. Extrem General: normal to inspection, no clubbing, cyanosis or edema Assessment & Plan Problems 1. Anemia, unspecified type D64.9 Plan I have discussed the above with the patient. I have offered the patient colonoscopy As well as an EGD for evaluation. I have explained the risks/benefits of the procedure and described the procedure. I have discussed the risks with the patient, including but not limited to: infection, bleeding, perforation of the GI tract requiring emergency surgery, inability to complete the procedure, injury to any internal organs, complications of anesthesia, etc. - the patient understands and agrees to proceed. I have answered all the patient's questions to the patient's satisfaction and the patient has no further questions. The patient has been given instructions for the colon cleansing preparation. Orders Orders: Colonoscopy 04/10/19 EGD 04/10/19 Medications New: multivitamin tablet 1 tab PO DAILY Coding Level of Care Code Off vis,new,level 3 Diagnoses Anemia, unspecified type D64.9 ??Anemia type: unspecified type 04/13/19 1119 <Electronically signed by Ki renae MD> Date _ Ki Feliciano MD I have re-examined the patient. There are no clinical changes since date of exam.
[2019-04-25 05:52] VITALS: BP 147/78; PULSE 71; RESP 18; TEMP 37.2; O2SAT 96; BMI 34.2
[2019-04-25] MEDS: Lactated Ringers 1,000 ML 100 ML IV (06:10)
[2019-04-25 07:06] LABS: Bedside Glucose 100 mg/dL (70-110)
[2019-04-25 07:09] VITALS: BP 118/50; BP 147/78; PULSE 77; RESP 18; TEMP 36.6; O2SAT 100
[2019-04-25 07:15] VITALS: BP 132/57; BP 147/78; PULSE 82; RESP 18; O2SAT 97
[2019-04-25 07:20] VITALS: BP 147/78; BP 155/66; PULSE 85; RESP 18; O2SAT 97
[2019-04-25 07:25] VITALS: BP 147/78; BP 156/74; PULSE 86; RESP 18; TEMP 36.9; O2SAT 97
[2019-04-25 07:50] VITALS: BP 147/78
--- NOTE | 2019-04-25 08:53 | OP.ENDO_ITS ---
04/25/2019 Oneyda Joel [address] [id number] Re : Colonoscopy procedure for Gillian Knox Dear Dr. Joel This procedure was performed on April. My impressions and recommendations are as follows: Impressions : - Diverticulosis in the entire examined colon. No specimens collected. - Non-bleeding external and internal hemorrhoids. - The examination was otherwise normal. Recommendations : - Discharge patient to home. - Resume previous diet. - Continue present medications. - Repeat colonoscopy in 10 years for screening purposes. - Return to primary care physician in 1 week. My findings are described in the full procedure note, which is enclosed. If I can be of further assistance, please feel free to contact me at Doctor phone number(s): , Fax: [phone], Work: . Sincerely, MD Ki Ashton MD 04/25/2019 7:06:24 AM This report has been signed electronically.
--- NOTE | 2019-04-25 08:53 | OP.ENDO_ITS ---
04/25/2019 Oneyda Joel [address] [id number] Re : Upper GI endoscopy procedure for Gillian Knox Dear Dr. Joel This procedure was performed on April. My impressions and recommendations are as follows: Impressions : - Medium-sized hiatal hernia. No specimens collected. The Z line was located at 36 cm diaphragmatic hiatus was located at 41 cm. - Normal stomach. No specimens collected. - Normal examined duodenum. No specimens collected. Recommendations : - Discharge patient to home. - Resume previous diet. - Continue present medications. - Repeat upper endoscopy (date not yet determined). - Return to primary care physician in 1 week. My findings are described in the full procedure note, which is enclosed. If I can be of further assistance, please feel free to contact me at Doctor phone number(s): , Fax: [phone], Work: . Sincerely, MD Ki Ashton MD 04/25/2019 7:03:46 AM This report has been signed electronically.
== END 2019-04-25 07:56 | disposition home or self-care (01) ==
LOC: EN 05:14 → AC 05:19
PROVIDERS: Family Provider Internal Medicine; PCP Internal Medicine; Referring Provider Internal Medicine; Visit Provider Surgery
PROC: 0DJD8ZZ Inspection of Lower Intestinal Tract, Via Natural or Artificial Opening Endoscopic (ICD-10-PCS; CPT 45378; principal; 2019-04-25 06:25)
DX: D50.9 Iron deficiency anemia, unspecified (principal); K44.9 Diaphragmatic hernia without obstruction or gangrene; K57.30 Diverticulosis of large intestine without perforation or abscess without bleeding; K64.8 Other hemorrhoids; I35.0 Nonrheumatic aortic (valve) stenosis; I27.21 Secondary pulmonary arterial hypertension; E78.5 Hyperlipidemia, unspecified; E11.9 Type 2 diabetes mellitus without complications; H54.40 Blindness, one eye, unspecified eye; K21.9 Gastro-esophageal reflux disease without esophagitis; M19.90 Unspecified osteoarthritis, unspecified site; Z86.73 Personal history of transient ischemic attack (TIA), and cerebral infarction without residual deficits; Z87.891 Personal history of nicotine dependence
CPT/HCPCS: 43235; 45378; 82962; J7120; J2405

== ENCOUNTER → 2019-11-07 12:37 | Outpatient (CLI) | payer MEDICARE, MEDICAID, SELFPAY ==
[2019-10-03 13:04] VITALS: BMI 35.2
--- NOTE | 2019-11-07 12:38 | ECHOD_ITS ---
Reason For Study: MURMUR Procedure This was a 2D Doppler, Color Flow transthoracic echocardiogram. Exam performed in department. Left Ventricle Normal LV size. Left ventricular systolic function is normal. The estimated ejection fraction is 60 %. No regional wall motion abnormalities noted. Right Ventricle Normal RV size. Atria The left atrium is moderately enlarged. Normal right atrium. Mitral Valve There is moderate mitral annular calcification. Tricuspid Valve Normal tricuspid valve. Mild (1+) tricuspid valve insufficiency. Pulmonary artery systolic pressure is 38 mmHg. Aortic Valve Trisinus/trileaflet aortic valve. Moderate focal aortic valve calcification. Severe aortic stenosis. Peak aortic valve gradient 79 mmHg. Mean aortic valve gradient 49 mmHg. Mild (1+) aortic valve insufficiency. Pulmonic Valve The pulmonic valve is not well visualized. Great Vessels Calcified aortic root. The pulmonary artery is normal size. Normal inferior vena cava. Pericardium/Pleural No pericardial effusion. MMode/2D Measurements & Calculations LVIDd: 5.1 cm IVSd: 1.1 cm LVOT diam: 2.0 cm LVIDs: 3.4 cm LVPWd: 1.2 cm LVOT area: 3.1 cm2 RVDd: 3.1 cm FS: 31.7 % Ao root diam: 2.9 cm LAV(MOD-bp): 102.3 ml LVAd ap4: 27.5 cm2 LAV(MOD-bp) Indexed: 50.6 ml/m2 EDV(MOD-sp4): 88.0 ml LAV(MOD-sp2): 120.9 ml EDV(sp4-el): 90.9 ml LAV(MOD-sp4): 83.2 ml LVAs ap4: 16.0 cm2 ESV(MOD-sp4): 34.0 ml ESV(sp4-el): 34.3 ml EF(MOD-sp4): 61.4 % EF(sp4-el): 62.3 % SV(MOD-sp4): 54.0 ml SV(sp4-el): 56.6 ml LA A4 area: 26.0 cm2 LA dimension(2D): 4.5 cm RA A4 area: 14.5 cm2 Time Measurements MV dec time: 0.18 sec Doppler Measurements & Calculations MV E max ephraim: 136.5 cm/sec Lat Peak E' Ephraim: 7.0 cm/sec Med Peak E' Ephraim: 4.8 cm/sec MV A max ephraim: 175.9 cm/sec E/E' lat: 19.5 E/E' med: 28.2 MV E/A: 0.78 MV V2 max: 189.6 cm/sec MV P1/2t max ephraim: 141.4 cm/sec Ao V2 max: 444.1 cm/sec MV max P.2 mmHg MV P1/2t: 78.9 msec Ao max P.9 mmHg MV V2 mean: 116.2 cm/sec Ao V2 mean: 333.9 cm/sec MV mean P.1 mmHg MV dec slope: 524.8 cm/sec2 Ao mean P.5 mmHg MV V2 VTI: 47.5 cm MVA(P1/2t): 2.8 cm2 Ao V2 VTI: 126.6 cm MVA(VTI): 2.0 cm2 LAUREN(I,D): 0.76 cm2 LAUREN(V,D): 0.68 cm2 AI max ephraim: 360.8 cm/sec LV V1 max: 97.9 cm/sec SV(LVOT): 95.7 ml AI max P.4 mmHg LV V1 max P.8 mmHg LV V1 mean P.5 mmHg AI dec slope: 265.2 cm/sec2 LV V1 mean: 75.6 cm/sec AI P1/2t: 398.5 msec LV V1 VTI: 31.0 cm PA V2 max: 106.6 cm/sec TR max ephraim: 292.5 cm/sec MV P1/2t-pr_phl: 77.9 msec TR max P.2 mmHg Interpretation Summary Moderate focal aortic valve calcification. Normal LV size. Left ventricular systolic function is normal. The estimated ejection fraction is 60 %. No regional wall motion abnormalities noted. The left atrium is moderately enlarged. Severe aortic stenosis. Mean aortic valve gradient 49 mmHg. Compared to prior study, there is no significant change. Ordering Physician: Cameron Benson Referring Physician: NORA MELOGZA Performed By: Cinthya Nicolas RDCS
== END ==
PROVIDERS: PCP Internal Medicine; Referring Provider Internal Medicine Cardiovascular Disease; Visit Provider Internal Medicine Cardiovascular Disease
DX: I35.0 Nonrheumatic aortic (valve) stenosis (principal); R01.1 Cardiac murmur, unspecified
CPT/HCPCS: 93306

== ENCOUNTER 2019-11-18 07:45 | Day surgery (SDC) | payer MEDICARE, MEDICAID, SELFPAY ==
[2019-11-13 11:21] VITALS: BMI 36.2
--- NOTE | 2019-11-13 12:20 | RAD_ITS ---
STUDY: X-RAY CHEST REASON FOR EXAM: Female, 83 years old. pre hearth cath, no chest complaints -- aortic stenosis TECHNIQUE: PA and lateral views of the chest. COMPARISON: 04/05/2015 FINDINGS: The lungs are clear and expanded. There is no demonstrated pleural abnormality. Normal size heart. Large hiatal hernia with an air-fluid level. Normal visualized pulmonary arteries. Normal visualized aortic arch and descending thoracic aorta. Normal visualized thoracic spine. Normal visualized ribs, clavicles, and shoulders. There is no demonstrated abnormality of the visualized soft tissue structures of the upper abdomen. RAD/Chest PA and Lateral IMPRESSION: No active disease. Electronically Signed: Chung Cowart MD at 9:22 EDT Tel , Service support ,
[2019-11-13 13:26] LABS: Absolute Lymphocyte Count 1.95 X10^3/uL (0.83-4.51); Absolute Neutrophil Count 1.6 X10^3/uL (2.0-7.7); Basophil# 0.03 X10^3/uL; Basophil% 0.7 % (0-1); Eosinophil# 0.35 X10^3/uL; Eosinophils% 8.1 % (0-5); Hemoglobin 9.4 g/dL (12.0-15.0); Lymphocyte # 1.95 X10^3/ul (4.0); Mean Corp Hgb Conc 31.3 g/dL (32-36); Mean Corpuscular Hgb 32.9 pg (27.0-32.0); Mean Corpuscular Volume 104.9 fL (81-99); Mean Platelet Vol. 10.5 fl (6.2-12.0); Monocyte# 0.42 X10^3/uL; Monocyte% 9.7 % (0-10); NRBC Flagged by Analyzer 0 % (0-5); Neutrophil # 1.57 X10^3/uL (2.7-7.7); Neutrophil % 36.3 % (47-70); Platelet Count 179 K/mm3 (150-450); RBC Distribution Width SD 54.3 fl (35.1-43.9); Red Blood Count 2.86 M/mm3 (4.2-5.4); White Blood Count 4.3 K/mm3 (4.4-11.0)
[2019-11-13 13:49] LABS: Anion Gap 4 (5-15); BUN 24 mg/dL (7-18); BUN/Creat Ratio 20.5 RATIO (10-20); Calcium,Total 8.8 mg/dL (8.5-10.1); Chloride 108 mmol/L (98-107); Creatinine, Serum 1.17 mg/dL (0.55-1.02); EST Glomerular Filtration Rate 47 mL/min (>60); Est Glom Filt Rate - Afr Amer 57 mL/min (>60); Glucose 100 mg/dL (74-106); Potassium 4.9 mmol/L (3.5-5.1); Sodium Level 139 mmol/L (136-145)
[2019-11-15 08:05] VITALS: BMI 36.2
--- NOTE | 2019-11-18 10:02 | CL.D_ITS ---
Patient Name: TALHA JACOBSON Study Date: 11/18/2019 Performing: Cameron Benson MD Ht: 64.17 inches 163 cm : 1935 Wt: 211.64 lbs 96 kg Age: 83 Gender: female BSA: 2.01 PROCEDURE(S) PERFORMED [id number] CLINICAL PROFILE AND INDICATIONS Indications: Valvular Disease Heart Failure: None Stress/Imaging Stress/Image Study Performed: No CAD Presentations: No Sxs, no angina. 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 Severe aortic stenosis by echocard iogram with a mean gradient of 49 mmHg across the aortic valve and a peak gradient of 81 mmHg. RECOMMENDATIONS Surgery consult for Valve Replacement surgery DESCRIPTION OF PROCEDURE The patient arrived to the procedure lab. The risks and benefits of the procedure as well as a full d escription of our services here and current unavailability of surgical backup were fully explained to the patient and/or their significant other prior to the catheterization. The Timeout was completed, verifying the correct patient and procedure. The patient's procedural site was prepped and draped in the usual fashion. Local anesthetic was given subcutaneously to right radial region with Lidocaine 2% . Using a modified Seldinger technique, arterial access was obtained via the right radial artery, a 6 Fr sheath was inserted. Right Coronary Artery selective angiography was then performed in multiple v iews using a 5 Fr. 4.0 [place] catheter. Left Coronary Artery selective angiography was performed in mu ltiple views using a 5 Fr. 4.0 [place] catheter.The arterial sheath was pulled and a TR Band was applie d for hemostasis CORONARY ANGIOGRAPHY DOMINANCE: Right Dominant LEFT HEART ASSESSMENT Left Ventricular Ejection Fraction: by Echo 65 % Normal LV wall motion Normal Left Ventricular systolic function LEFT MAIN: Angiographically normal LEFT ANTERIOR DESCENDING ARTERY: OSTIAL LAD: Mild luminal irregularities less than 30% CIRCUMFLEX ARTERY: OSTIAL CIRC: Moderate luminal irregularities up to 50% RIGHT CORONARY ARTERY: Angiographically normal VALVE FINDINGS: Aortic Valve Stenosis - severe Mitral Valve Calcification Moderate AORTIC ROOT: Calcified COMPLICATIONS No Complications PROCEDURE MEDICATIONS Versed 0.5 mg IV Fentanyl 25 mcg IV Versed 0.5 mg IV Oxygen: 2 L/min via nasal cannula Heparin diluted in 23cc Heparinized saline. Patient given 10cc IA of this solution. 11/18/2019 09:41: 41 Verapamil 2.5mg, Ntg 100mcgs, 2000 units of Heparin diluted in 23cc Heparinized saline. Patient give n 10cc IA of this solution. 11/18/2019 09:41:41 SUMMARY OF HEMODYNAMIC DATA Time AIR REST ECG 08:13:07 AO 128/58 (81) SA 09:43:28 Signed By Cameron Benson MD On 11/18/2019 10:01:41 Cameron Benson MD
== END 2019-11-18 12:05 | disposition home or self-care (01) ==
LOC: CLSP 07:47
PROVIDERS: PCP Internal Medicine; Referring Provider Internal Medicine Cardiovascular Disease; Visit Provider Internal Medicine Cardiovascular Disease
DX: I35.0 Nonrheumatic aortic (valve) stenosis (principal); I25.10 Atherosclerotic heart disease of native coronary artery without angina pectoris; I10 Essential (primary) hypertension; E78.5 Hyperlipidemia, unspecified; R01.1 Cardiac murmur, unspecified; E11.9 Type 2 diabetes mellitus without complications; D64.9 Anemia, unspecified; Z87.891 Personal history of nicotine dependence; Z86.73 Personal history of transient ischemic attack (TIA), and cerebral infarction without residual deficits
CPT/HCPCS: 36415; 71046; 80048; 85025; 93454; 99152; J7040; C1769; C1894; Q9967

== ENCOUNTER → 2020-02-21 10:22 | Outpatient (CLI) | payer MEDICARE, MEDICAID, SELFPAY ==
[2019-11-15 08:05] VITALS: BMI 36.2
[2020-02-21 11:48] LABS: Anion Gap 4 (5-15); BUN 28 mg/dL (7-18); BUN/Creat Ratio 22.2 RATIO (10-20); Calcium,Total 9.1 mg/dL (8.5-10.1); Chloride 108 mmol/L (98-107); Creatinine, Serum 1.26 mg/dL (0.55-1.02); EST Glomerular Filtration Rate 43 mL/min (>60); Est Glom Filt Rate - Afr Amer 52 mL/min (>60); Glucose 131 mg/dL (74-106); Potassium 4.9 mmol/L (3.5-5.1); Sodium Level 139 mmol/L (136-145)
== END ==
PROVIDERS: PCP Internal Medicine
DX: I35.0 Nonrheumatic aortic (valve) stenosis (principal)
CPT/HCPCS: 36415; 80048

== ENCOUNTER → 2020-05-08 12:50 | Outpatient (CLI) | payer MEDICARE, MEDICAID, SELFPAY ==
[2020-03-17 15:12] VITALS: BMI 35.5
--- NOTE | 2020-05-08 12:51 | ECHOD_ITS ---
Reason For Study: VALVE REPLACEMENT EVAL Procedure This was a 2D Doppler, Color Flow transthoracic echocardiogram. Exam performed in department. Left Ventricle Normal LV size. Left ventricular systolic function is normal. The estimated ejection fraction is 60 %. Stage 1 diastolic dysfunction. No regional wall motion abnormalities noted. Right Ventricle Normal RV size. Normal systolic function. Atria The left atrium is moderately enlarged. Normal right atrium. Mitral Valve There is mild mitral annular calcification. Mild (1+) eccentric mitral valve insufficiency. Tricuspid Valve Normal tricuspid valve. Mild (1+) tricuspid valve insufficiency. Pulmonary artery systolic pressure is 38 mmHg. Aortic Valve Peak aortic valve gradient 29 mmHg. Mean aortic valve gradient 14 mmHg. Mild aortic stenosis. Trivial aortic valve insufficiency. Bioprosthetic aortic valve. Great Vessels Normal aortic root. Pericardium/Pleural No pericardial effusion. MMode/2D Measurements & Calculations LVIDd: 4.8 cm IVSd: 1.3 cm LVOT diam: 2.0 cm LVIDs: 3.4 cm LVPWd: 1.4 cm LVOT area: 3.2 cm2 RVDd: 3.3 cm FS: 30.2 % Ao root diam: 3.0 cm LAV(MOD-bp): 87.7 ml LVAd ap4: 27.9 cm2 LAV(MOD-bp) Indexed: 44.7 ml/m2 EDV(MOD-sp4): 91.9 ml LAV(MOD-sp2): 95.9 ml EDV(sp4-el): 93.1 ml LAV(MOD-sp4): 73.3 ml LVAs ap4: 16.0 cm2 ESV(MOD-sp4): 34.5 ml ESV(sp4-el): 34.9 ml EF(MOD-sp4): 62.4 % EF(sp4-el): 62.5 % SV(MOD-sp4): 57.4 ml SV(sp4-el): 58.2 ml LA A4 area: 24.8 cm2 LA dimension(2D): 3.3 cm RA A4 area: 13.8 cm2 Time Measurements MV dec time: 0.26 sec Doppler Measurements & Calculations MV E max ephraim: 89.9 cm/sec Lat Peak E' Ephraim: 8.4 cm/sec Med Peak E' Ephraim: 5.3 cm/sec MV A max ephraim: 148.6 cm/sec E/E' lat: 10.7 E/E' med: 17.0 MV E/A: 0.61 MV V2 max: 166.2 cm/sec MV P1/2t max ephraim: 104.6 cm/sec Ao V2 max: 270.0 cm/sec MV max P.0 mmHg MV P1/2t: 86.6 msec Ao max P.2 mmHg MV V2 mean: 95.6 cm/sec Ao V2 mean: 179.0 cm/sec MV mean P.2 mmHg MV dec slope: 353.9 cm/sec2 Ao mean P.5 mmHg MV V2 VTI: 40.7 cm MVA(P1/2t): 2.5 cm2 Ao V2 VTI: 63.2 cm MVA(VTI): 2.2 cm2 LAUREN(I,D): 1.4 cm2 LAUREN(V,D): 1.3 cm2 AI max ephraim: 506.4 cm/sec LV V1 max: 107.2 cm/sec SV(LVOT): 87.7 ml AI max P.6 mmHg LV V1 max P.6 mmHg AI dec slope: 307.9 cm/sec2 LV V1 mean P.7 mmHg AI P1/2t: 481.8 msec LV V1 mean: 78.6 cm/sec LV V1 VTI: 27.8 cm PA V2 max: 116.6 cm/sec TR max ephraim: 288.1 cm/sec TR max P.2 mmHg Interpretation Summary Normal LV size. Left ventricular systolic function is normal. The estimated ejection fraction is 60 %. Stage 1 diastolic dysfunction. Mean aortic valve gradient 14 mmHg. Mild aortic stenosis. Bioprosthetic aortic valve. Based on the above the aortic valve has been replaced. Ordering Physician: Cameron Benson Referring Physician: NORA MELGOZA Performed By: Cinthya Nicolas RDCS
[2020-05-08 14:28] LABS: Absolute Lymphocyte Count 1.55 X10^3/uL (0.83-4.51); Absolute Neutrophil Count 2.8 X10^3/uL (2.0-7.7); Basophil# 0.03 X10^3/uL; Basophil% 0.6 % (0-1); Eosinophil# 0.33 X10^3/uL; Eosinophils% 6.4 % (0-5); Hematocrit 28.3 % (37-47); Lymphocyte # 1.55 X10^3/ul (4.0); Lymphocyte % 29.9 % (19-41); Mean Corp Hgb Conc 31.8 g/dL (32-36); Mean Corpuscular Hgb 34.4 pg (27.0-32.0); Mean Platelet Vol. 10.1 fl (6.2-12.0); Monocyte# 0.42 X10^3/uL; Monocyte% 8.1 % (0-10); NRBC Flagged by Analyzer 0 % (0-5); Neutrophil # 2.84 X10^3/uL (2.7-7.7); Neutrophil % 54.8 % (47-70); Platelet Count 221 K/mm3 (150-450); RBC Distribution Width CV 12.7 % (11.6-14.6); RBC Distribution Width SD 50.4 fl (35.1-43.9); Red Blood Count 2.62 M/mm3 (4.2-5.4); White Blood Count 5.2 K/mm3 (4.4-11.0)
[2020-05-08 14:41] LABS: Anion Gap 6 (5-15); BUN 30 mg/dL (7-18); BUN/Creat Ratio 24.8 RATIO (10-20); Chloride 107 mmol/L (98-107); Creatinine, Serum 1.21 mg/dL (0.55-1.02); EST Glomerular Filtration Rate 45 mL/min (>60); Est Glom Filt Rate - Afr Amer 55 mL/min (>60); Glucose 98 mg/dL (74-106); Potassium 5.3 mmol/L (3.5-5.1); Sodium Level 139 mmol/L (136-145)
== END ==
PROVIDERS: PCP Internal Medicine; Referring Provider Internal Medicine Cardiovascular Disease; Visit Provider Internal Medicine Cardiovascular Disease
DX: Z95.3 Presence of xenogenic heart valve (principal); I35.0 Nonrheumatic aortic (valve) stenosis; I25.10 Atherosclerotic heart disease of native coronary artery without angina pectoris; G45.9 Transient cerebral ischemic attack, unspecified; I27.21 Secondary pulmonary arterial hypertension; I10 Essential (primary) hypertension; E78.5 Hyperlipidemia, unspecified
CPT/HCPCS: 36415; 80048; 85025; 93306

== ENCOUNTER → 2020-07-03 07:29 | Outpatient (CLI) | payer MEDICARE, MEDICAID, SELFPAY ==
[2020-03-17 15:12] VITALS: BMI 35.5
[2020-07-03 10:47] LABS: Absolute Lymphocyte Count 2.36 X10^3/uL (0.83-4.51); Absolute Neutrophil Count 1.3 X10^3/uL (2.0-7.7); Anion Gap 4 (5-15); BUN 28 mg/dL (7-18); BUN/Creat Ratio 23.3 RATIO (10-20); Basophil# 0.03 X10^3/uL; Basophil% 0.6 % (0-1); Chloride 108 mmol/L (98-107); EST Glomerular Filtration Rate 46 mL/min (>60); Eosinophil# 0.56 X10^3/uL; Est Glom Filt Rate - Afr Amer 55 mL/min (>60); Glucose 110 mg/dL (74-106); Hematocrit 30.8 % (37-47); Hemoglobin 9.6 g/dL (12.0-15.0); Lymphocyte # 2.36 X10^3/ul (4.0); Lymphocyte % 50.6 % (19-41); Mean Corp Hgb Conc 31.2 g/dL (32-36); Mean Corpuscular Hgb 33.4 pg (27.0-32.0); Mean Corpuscular Volume 107.3 fL (81-99); Mean Platelet Vol. 9.8 fl (6.2-12.0); Monocyte% 8.6 % (0-10); NRBC Flagged by Analyzer 0 % (0-5); Neutrophil # 1.31 X10^3/uL (2.7-7.7); Neutrophil % 28.2 % (47-70); Platelet Count 163 K/mm3 (150-450); Potassium 4.4 mmol/L (3.5-5.1); RBC Distribution Width CV 11.8 % (11.6-14.6); RBC Distribution Width SD 46.7 fl (35.1-43.9); Red Blood Count 2.87 M/mm3 (4.2-5.4); Sodium Level 141 mmol/L (136-145); White Blood Count 4.7 K/mm3 (4.4-11.0)
== END ==
PROVIDERS: PCP Internal Medicine; Visit Provider Internal Medicine Cardiovascular Disease
DX: D64.9 Anemia, unspecified (principal); E78.5 Hyperlipidemia, unspecified; I10 Essential (primary) hypertension; G45.9 Transient cerebral ischemic attack, unspecified; I25.10 Atherosclerotic heart disease of native coronary artery without angina pectoris; I35.0 Nonrheumatic aortic (valve) stenosis; Z95.3 Presence of xenogenic heart valve
CPT/HCPCS: 36415; 80048; 85025

== ENCOUNTER → 2021-03-24 12:54 | Outpatient (CLI) | payer MEDICARE, MEDICAID, SELFPAY ==
[2020-03-17 15:12] VITALS: BMI 35.5
--- NOTE | 2021-03-24 12:57 | ECHOD_ITS ---
Reason For Study: Valve Replacement Eval Procedure This was a 2D Doppler, Color Flow transthoracic echocardiogram. Exam performed in department. Left Ventricle Normal LV size. Moderate concentric left ventricular hypertrophy. Left ventricular systolic function is normal. The estimated ejection fraction is 60 %. Stage 1 diastolic dysfunction. No regional wall motion abnormalities noted. Right Ventricle Normal RV size. Normal systolic function. Atria The left atrium is mildly enlarged. Normal right atrium. Mitral Valve Normal mitral valve. Tricuspid Valve Normal tricuspid valve. Mild (1+) tricuspid valve insufficiency. Pulmonary artery systolic pressure is 28 mmHg. Aortic Valve Peak aortic valve gradient 29 mmHg. Mean aortic valve gradient 15 mmHg. Mild aortic stenosis. Mild perivalvular leak. Bioprosthetic aortic valve. Pulmonic Valve Normal pulmonic valve. Great Vessels Normal aortic root. The pulmonary is not well visualized. Normal inferior vena cava. Pericardium/Pleural No pericardial effusion. MMode/2D Measurements & Calculations LVIDd: 4.7 cm IVSd: 1.5 cm LVOT diam: 2.0 cm LVIDs: 2.5 cm LVPWd: 1.5 cm LVOT area: 3.0 cm2 RVDd: 3.2 cm FS: 46.7 % Ao root diam: 3.1 cm LAV(MOD-bp): 46.4 ml LVAd ap4: 20.9 cm2 LAV(MOD-bp) Indexed: 23.4 ml/m2 LVLd ap4: 6.5 cm LAV(MOD-sp2): 24.7 ml EDV(MOD-sp4): 57.2 ml LAV(MOD-sp4): 84.6 ml EDV(sp4-el): 57.2 ml LVAs ap4: 10.6 cm2 LVLs ap4: 5.5 cm ESV(MOD-sp4): 17.3 ml ESV(sp4-el): 17.4 ml EF(MOD-sp4): 69.8 % EF(sp4-el): 69.7 % LVAd ap2: 22.3 cm2 SV(MOD-sp4): 39.9 ml SV(MOD-sp2): 41.0 ml LVLd ap2: 6.6 cm EDV(MOD-sp2): 62.2 ml EDV(sp2-el): 63.9 ml LVAs ap2: 11.8 cm2 LVLs ap2: 5.7 cm ESV(MOD-sp2): 21.2 ml ESV(sp2-el): 20.8 ml EF(MOD-sp2): 65.9 % SV(sp4-el): 39.9 ml LA dimension(2D): 3.3 cm LA A4 area: 26.2 cm2 RA A4 area: 19.0 cm2 Time Measurements MV dec time: 0.33 sec Doppler Measurements & Calculations MV E max ephraim: 86.1 cm/sec Lat Peak E' Ephraim: 5.6 cm/sec Med Peak E' Ephraim: 5.4 cm/sec MV A max ephraim: 116.6 cm/sec E/E' lat: 15.5 E/E' med: 15.9 MV E/A: 0.74 MV V2 max: 153.2 cm/sec MV P1/2t max ephraim: 104.2 cm/sec Ao V2 max: 271.8 cm/sec MV max P.4 mmHg MV P1/2t: 96.2 msec Ao max P.6 mmHg MV V2 mean: 88.4 cm/sec Ao V2 mean: 183.4 cm/sec MV mean P.5 mmHg MV dec slope: 317.2 cm/sec2 Ao mean P.0 mmHg MV V2 VTI: 37.1 cm MVA(P1/2t): 2.3 cm2 Ao V2 VTI: 55.2 cm MVA(VTI): 2.9 cm2 LAUREN(I,D): 1.9 cm2 LAUREN(V,D): 2.0 cm2 AI max ephraim: 420.5 cm/sec LV V1 max: 179.5 cm/sec SV(LVOT): 106.2 ml AI max P.9 mmHg LV V1 max P.9 mmHg AI dec slope: 258.8 cm/sec2 LV V1 mean P.9 mmHg AI P1/2t: 475.9 msec LV V1 mean: 124.0 cm/sec LV V1 VTI: 35.1 cm PA V2 max: 95.1 cm/sec TR max ephraim: 247.0 cm/sec TR max P.4 mmHg ECHO/Echo Complete Interpretation Summary Normal LV size. Moderate concentric left ventricular hypertrophy. Left ventricular systolic function is normal. The estimated ejection fraction is 60 %. Stage 1 diastolic dysfunction. Bioprosthetic aortic valve. Mild aortic stenosis. Mild perivalvular leak. Compared to previous study, the left ventricular systolic function is the same. . Ordering Physician: Cameron Benson Referring Physician: Oneyda Joel Performed By: Lakshmi Ardon, RDCS, RVT
== END ==
PROVIDERS: PCP Internal Medicine; Referring Provider Internal Medicine Cardiovascular Disease; Visit Provider Internal Medicine Cardiovascular Disease
DX: Z95.3 Presence of xenogenic heart valve (principal)
CPT/HCPCS: 93306